=== PATIENT | female | born 1935 | race Hispanic/Latino ===

== ENCOUNTER → 2018-02-12 | Outpatient (CLI) | payer BC, MEDICARE ==
[~2018-02-12] MED LIST: ASPIRIN EC81 MG PO; FOSAMAX70 MG PO; LEVOTHYROXINE50 MCG PO; NORTRIPTYLINE H25 MG PO; PRAVASTATIN SOD10 MG PO; ULTRAM 50MG50 MG PO
--- NOTE | 2018-02-12 09:44 | Diagnostic Imaging Report ---
TECHNIQUE: Magnetic resonance imaging of the left KNEE was performed WITHOUT injected contrast. HISTORY: knee pain COMPARISON: None available. FINDINGS: LIGAMENTS AND TENDONS: ACL: Intact PCL: Intact Collateral ligaments: Intact Iliotibial band: Unremarkable Popliteal tendon: Intact Extensor mechanism: Intact JOINT: Menisci: Medial: Horizontal tear with flipped fragment into the meniscal tibial recess Lateral: Free margin fraying of the body. Articular Cartilage: Medial Compartment: High-grade cartilage loss at the medial joint line with subchondral edema. Lateral Compartment: Intermediate grade cartilage loss Patellofemoral Compartment: Intermediate grade cartilage loss Joint Fluid: The amount of fluid within the joint is within physiologic limits. BONE: As above No acute fracture. SOFT TISSUES: Otherwise, unremarkable. IMPRESSION: Medial meniscus horizontal tear of the body and posterior horn with flipped fragment to the meniscotibial recess. Medial compartment high-grade cartilage loss with subchondral edema at the medial joint line. Signed by: Dr. Lam Kelly M.D. on 02/12/2018 9:40 AM
== END ==
LOC: MRI 08:35
PROVIDERS: ATTEND Specialist
DX: S83.222A Peripheral tear of medial meniscus, current injury, left knee, initial encounter (principal)

== ENCOUNTER → 2018-02-28 | Day surgery (SDC) | payer BC, MEDICARE ==
[2018-02-26 10:17] LABS: BASOPHILS # (AUTO) 0.1 (0.0-0.1); BASOPHILS % 0.6 % (0.0-1.0); EOSINOPHILS # (AUTO) 0.2 (0.0-0.4); EOSINOPHILS % 1.9 % (0.0-6.0); HEMATOCRIT 40.4 % (34.2-44.1); HEMOGLOBIN 13.5 g/dL (12.0-16.0); LYMPHOCYTES # (AUTO) 2.6 (1.0-3.2); LYMPHOCYTES % 29.6 % (18.0-39.1); MEAN CORPUSCULAR HEMOGLOBIN 30.8 pg (28-32); MEAN CORPUSCULAR HGB CONC 33.4 g/dL (31-35); MEAN CORPUSCULAR VOLUME 92.2 fL (81-99); MONOCYTES # (AUTO) 0.6 (0.2-0.8); MONOCYTES % 6.5 % (4.4-11.3); NEUTROPHILS # (AUTO) 5.4 (2.1-6.9); PLATELET COUNT 227 x10e3/uL (140-360); RED BLOOD COUNT 4.38 x10e6/uL (3.6-5.1); RED CELL DISTRIBUTION WIDTH 12.7 % (11.7-14.4)
--- NOTE | 2018-02-26 10:37 | Diagnostic Imaging Report ---
PROCEDURE: X-RAY CHEST, TWO VIEWS COMPARISON: None. INDICATIONS: PREOPERATIVE CHEST XRAY FOR SURGERY FINDINGS: Lungs are well-inflated. No consolidation, pleural effusion, or pneumothorax. Mild chronic appearing prominence of the interstitium likely age-related fibrotic changes. Atherosclerotic calcification of the thoracic aorta. Normal heart size. No acute osseous abnormality. CONCLUSION: No acute cardiopulmonary abnormality. Dictated by: Paul Logan M.D. on 02/26/2018 at 10:45 Electronically approved by: Paul Logan M.D. on 02/26/2018 at 10:45
[~2018-02-28] MED LIST changes: +BUPIVACAINE 0.5%/EPI 30 ML SDV INJ ONE; +CEFAZOLIN SOD 2 GM/D5W 50ML 50 ML IV ONE; +DEXAMETHASONE SOD PHOS INJ 4 MG/ML VIAL ONE; +FENTANYL CITRATE/PF 100MCG/2 ML INJ ONE; +KETOROLAC TROMETHAMINE 30 MG/ML VIAL ONE; +LIDOCAINE HCL 2% LOCAL INJ 5 ML SDV VIAL INJ ONE; +ONDANSETRON HCL INJ 2 MG/ML VIAL ONE; +PROPOFOL IV EMULSION 10 MG/ML 20 ML VIAL ONE; +SEVOFLURANE INHAL SOLN 250 ML PEN BTL ONE
--- OUTSIDE RECORDS SUMMARY | 2018-02-28 05:24 | XMS REPORT ---
[facility] Address Unknown Phone Unavailable Care Team Providers Care Nurse Manager Name Role Phone NISA LEE Unavailable Unavailable Problems This patient has no known problems. Allergies, Adverse Reactions, Alerts This patient has no known allergies or adverse reactions. Medications This patient has no known medications. Results Test Description Test Time Test Comments Text Results Atomic Results Result Comments CHEST 2 VIEWS 2018-02-26 10:45:00 [place] [address] Patient Name: FRANKLYN KAT MR #: [id number] : 1935 Age/Sex: 82/F Req #: [id number] Adm Physician: Ordered by: NISA LEE MD Report #: [id number] Location: OR Room/Bed: Procedure: [id number] DX/CHEST 2 VIEWS Exam Date: 02/26/18 Exam Time: 1000 REPORT STATUS: Signed PROCEDURE: X-RAY CHEST, TWO VIEWS COMPARISON: None. INDICATIONS: PREOPERATIVE CHEST XRAY FOR SURGERY FINDINGS: Lungs are well- inflated. No consolidation, pleural effusion, or pneumothorax. Mild chronic appearing prominence of the interstitium likely age-related fibrotic changes. Atherosclerotic calcification of the thoracic aorta. Normal heart size. No acute osseous abnormality. CONCLUSION: No acute cardiopulmonary abnormality. Dictated by: Julien Martinez M.D. on 02/26/2018 at 10:45 Electronically approved by: Julien Martinez M.D. on 02/26/2018 at 10:45 Dictated By: JULIEN MARTINEZ MD Transcribed By: ALEJANDRA on 02/26/181044 COPY TO: NISA LEE MD MRI KNEE LEFT WO 2018-02-12 09:38:00 [place] [address] Patient Name: FRANKLYN KAT MR #: [id number] : 1935 Age/Sex: 82/F Req #: [id number] Adm Physician: Ordered by: NISA LEE MD Report #: [id number] Location: MRI Room/Bed: Procedure: [id number] MRI/MRI KNEE LEFT WO Exam Date: Exam Time: REPORT STATUS: Signed TECHNIQUE: Magnetic resonance imaging of the left KNEE was performed WITHOUT injected contrast. HISTORY: knee pain COMPARISON: None available. FINDINGS: LIGAMENTS AND TENDONS: ACL: Intact PCL: Intact Collateral ligaments: Intact Iliotibial band: Unremarkable Popliteal tendon: Intact Extensor mechanism: Intact JOINT: Menisci: Medial: Horizontal tear with flipped fragment into the meniscal tibial recess Lateral: Free margin fraying of the body. Articular Cartilage: Medial Compartment: High-grade cartilage loss at the medial joint line with subchondral edema. Lateral Compartment: Intermediate grade cartilage loss Patellofemoral Compartment: Intermediate grade cartilage loss Joint F luid: The amount of fluid within the joint is within physiologic limits. BONE: As above No acute fracture. SOFT TISSUES: Otherwise, unremarkable. IMPRESSION: Medial meniscus horizontal tear of the body and posterior horn with flipped fragment to the meniscotibial recess. Medial compartment high-grade cartilage loss with subchondral edema at the medial joint line. Signed by: Dr. Nora Reid M.D. on 02/12/2018 9:40 AM Dictated By: NORA REID MD 9 Transcribed By: NICK on 02/12/18939 COPY TO: NISA LEE MD
[2018-02-28 09:30] VITALS: BP 133/61
--- NOTE | 2018-03-01 17:35 | Operative Report ---
DATE OF PROCEDURE: February 28, 2018 PREOPERATIVE DIAGNOSES 1. Left knee medial meniscus tear. 2. Left knee degenerative joint disease of the knee. POSTOPERATIVE DIAGNOSES 1. Left knee medial meniscus tear. 2. Left knee degenerative joint disease of the knee. OPERATION/PROCEDURE PERFORMED: 1. Left knee examination under anesthesia. 2. Left knee arthroscopy. 3. Left knee partial medial meniscectomy. 4. Left knee chondroplasty of patella, the trochlea, medial femoral condyle, medial tibia plateau and the lateral tibial plateau. ELECTRICAL WIRING LINEMAN: Louann Navarro. ANESTHESIA: General endotracheal intubation anesthesia. IV FLUIDS: Per the anesthesia record. BRIEF DESCRIPTION OF THE PATIENT'S OPERATIVE PROCEDURE: Ms. Sesay was taken to the operating room and placed in the supine position on the operating table. Following induction of general anesthesia as well as endotracheal intubation, the patient's left lower extremity was examined under anesthesia. She was found to have a mild effusion within the knee joint, but otherwise ligamentously stable knee. The patient's lower extremity was prepped and draped in standard surgical fashion. A 2 portal technique was used to provide this patient arthroscopic evaluation of the knee joint. Examination of the suprapatellar pouch, medial and lateral gutters found no evidence of loose bodies. There was, however, evidence of chondromalacia of the patellar and trochlear surfaces. Scope was advanced in the medial compartment and examination of the medial compartment demonstrated a torn medial meniscus. There was also chondromalacia of the articulating surfaces. A combination of biting forceps and a motorized shaver were used to resect the torn portion of the meniscus. Chondroplasties of the medial femoral condyle and medial tibial plateau were performed at this time. The scope was then placed into the intercondylar notch. The anterior cruciate ligament was identified and found to be intact. Scope was advanced into the lateral compartment and there was chondromalacia of the lateral tibial plateau. Chondroplasty of this surface was performed. Scope was then placed in the suprapatellar pouch and chondroplasty of patella and trochlea was performed at this time. The knee was deflated of its sterile normal saline. The portal sites were closed using 4-0 nylon suture. The portal sites as well as the knee itself were then injected with half percent Marcaine with epinephrine. Sterile dressings were applied and the patient was awakened and taken to the post anesthesia care unit in stable condition. Job#: [id number] GH
== END | disposition home or self-care (01) ==
LOC: OR 05:17
PROVIDERS: ATTEND Specialist
DX: S83.222A Peripheral tear of medial meniscus, current injury, left knee, initial encounter (principal); M22.42 Chondromalacia patellae, left knee; M17.12 Unilateral primary osteoarthritis, left knee; E78.00 Pure hypercholesterolemia, unspecified; M81.0 Age-related osteoporosis without current pathological fracture; E07.9 Disorder of thyroid, unspecified; X58.XXXA Exposure to other specified factors, initial encounter; Z01.810 Encounter for preprocedural cardiovascular examination; Z01.812 Encounter for preprocedural laboratory examination; Z01.818 Encounter for other preprocedural examination; Z85.3 Personal history of malignant neoplasm of breast; Z90.11 Acquired absence of right breast and nipple
CPT/HCPCS: 29881; 36415; 71046; 85025; 93005; J1100; J1885; J2001; J2405; J0690

== ENCOUNTER → 2018-04-13 | Outpatient (RCR) | payer BC, MEDICARE ==
[~2018-04-13] MED LIST changes: -BUPIVACAINE 0.5%/EPI 30 ML SDV INJ ONE; -CEFAZOLIN SOD 2 GM/D5W 50ML 50 ML IV ONE; -DEXAMETHASONE SOD PHOS INJ 4 MG/ML VIAL ONE; -FENTANYL CITRATE/PF 100MCG/2 ML INJ ONE; -KETOROLAC TROMETHAMINE 30 MG/ML VIAL ONE; -LIDOCAINE HCL 2% LOCAL INJ 5 ML SDV VIAL INJ ONE; -ONDANSETRON HCL INJ 2 MG/ML VIAL ONE; -PROPOFOL IV EMULSION 10 MG/ML 20 ML VIAL ONE; -SEVOFLURANE INHAL SOLN 250 ML PEN BTL ONE
== END ==
LOC: PT 03-28 15:57
PROVIDERS: ATTEND Specialist
DX: M25.562 Pain in left knee (principal); M25.662 Stiffness of left knee, not elsewhere classified; M62.81 Muscle weakness (generalized); R26.9 Unspecified abnormalities of gait and mobility
CPT/HCPCS: 97110 ×7; 97140 ×2; 97162; G8978; G8979

== ENCOUNTER 2018-04-18 12:54 | Outpatient (RCR) | payer BC, MEDICARE | END 2018-05-14 | LOC: PT 12:54 | PROVIDERS: ATTEND Specialist | DX: M25.562 Pain in left knee (principal); M25.662 Stiffness of left knee, not elsewhere classified; M25.862 Other specified joint disorders, left knee; M62.81 Muscle weakness (generalized); R26.9 Unspecified abnormalities of gait and mobility | CPT/HCPCS: 97110 ×2; G8979; G8980 ==

== ENCOUNTER → 2020-02-24 | Outpatient (CLI) | payer BC, MEDICARE ==
--- NOTE | 2020-02-24 09:42 | Diagnostic Imaging Report ---
Right hip, 2 views. History: Right hip pain. Findings: The soft tissues are normal. Bone mineralization is normal. There is no evidence of fracture or dislocation. There are no lytic or sclerotic lesions. There is mild joint space narrowing and subchondral sclerosis. IMPRESSION: Mild right hip DJD. Signed by: Jian Eastman on 02/24/2020 9:39 AM
--- NOTE | 2020-02-24 09:45 | Diagnostic Imaging Report ---
Lumbar spine series, 5 views. History: Low back pain. Comparison: None available. Discussion: The paraspinal soft tissues are unremarkable. The alignment of the lumbar spine is normal. There is no evidence of fracture, spondylolisthesis, or spondylolysis. There is severe disc space narrowing with end plate and posterior facet sclerosis at L1-L2 and L5-S1. Mild to moderate disc space narrowing is present at other levels with diffuse osteophytosis. 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 Signed by: Jian Eastman on 02/24/2020 9:42 AM
== END ==
LOC: RAD 08:49
PROVIDERS: ATTEND Internal Medicine
DX: S73.101A Unspecified sprain of right hip, initial encounter (principal); S33.9XXA Sprain of unspecified parts of lumbar spine and pelvis, initial encounter
CPT/HCPCS: 72110

== ENCOUNTER → 2021-05-20 | Outpatient (CLI) | payer MEDICARE ==
[~2021-05-20] MED LIST changes: +DIATRIZOATE MEGL/DIATRIZOA SOD 30 ML BTL PO ONE; +IOPAMIDOL 370 MG/ML 200 ML INFUS..BTL INJ ONE; +SODIUM CHLORIDE 0.9% 50ML 50 ML ONE
== END ==
LOC: CT 11:31
PROVIDERS: ATTEND Internal Medicine
DX: K57.90 Diverticulosis of intestine, part unspecified, without perforation or abscess without bleeding (principal)
CPT/HCPCS: 36415; 74177; 82565; 84520; Q9967

== ENCOUNTER → 2022-07-04 | Outpatient (CLI) | payer MEDICARE ==
[~2022-07-04] MED LIST changes: -DIATRIZOATE MEGL/DIATRIZOA SOD 30 ML BTL PO ONE; -IOPAMIDOL 370 MG/ML 200 ML INFUS..BTL INJ ONE; -SODIUM CHLORIDE 0.9% 50ML 50 ML ONE
== END ==
LOC: RAD 09:49
PROVIDERS: ATTEND Internal Medicine
DX: M47.817 Spondylosis without myelopathy or radiculopathy, lumbosacral region (principal)
CPT/HCPCS: 72110

== ENCOUNTER 2022-07-24 22:51 | Emergency (ER) | payer MEDICARE ==
[~2022-07-24] VITALS: Ht 170.2 cm; Wt 74.8 kg
[2022-07-24 23:28] LABS: BASOPHILS # (AUTO) 0.1 (0.0-0.1); BASOPHILS % 0.6 % (0.0-1.0); EOSINOPHILS # (AUTO) 0.2 (0.0-0.4); EOSINOPHILS % 1.5 % (0.0-6.0); HEMATOCRIT 41.2 % (34.2-44.1); HEMOGLOBIN 13.5 g/dL (12.0-16.0); LYMPHOCYTES # (AUTO) 2.1 (1.0-3.2); LYMPHOCYTES % 21.1 % (18.0-39.1); MEAN CORPUSCULAR HEMOGLOBIN 30.9 pg (28-32); MEAN CORPUSCULAR HGB CONC 32.8 g/dL (31-35); MEAN CORPUSCULAR VOLUME 94.3 fL (81-99); MONOCYTES # (AUTO) 0.4 (0.2-0.8); MONOCYTES % 4.5 % (4.4-11.3); NEUTROPHILS % 71.8 % (38.7-80.0); PLATELET COUNT 197 x10e3/uL (140-360); RED BLOOD COUNT 4.37 x10e6/uL (3.6-5.1); RED CELL DISTRIBUTION WIDTH 13.5 % (11.7-14.4)
[2022-07-24 23:44] LABS: ALBUMIN 3.4 g/dL (3.5-5.0); ALBUMIN/GLOBULIN RATIO 0.8 (0.8-2.0); ANION GAP 15.9 mmol/L (8-16); CALCIUM 8.7 mg/dL (8.4-10.2); CREATININE, SERUM 1.12 mg/dL (0.57-1.11); POTASSIUM 3.9 mmol/L (3.5-5.1)
[2022-07-24] MEDS: ONDANSETRON HCL INJ 2MG/ML 2ML 2 MG/ML VIAL IV STA (23:54)
[2022-07-24] MEDS: Morphine 4mg INJECTION 4 MG/ML INJ IV ONE (23:54)
[2022-07-25] MEDS ORDERED: IOPAMIDOL 370 MG/ML 100 ML INFUS..BTL INJ ONE (00:08)
[2022-07-25 00:20] LABS: CLARITY,URINE CLOUDY (CLEAR); COLOR,URINE YELLOW (YELLOW); KETONES,URINE NEGATIVE (NEGATIVE); LEUKOCYTE ESTERASE ,URINE 1+ (NEGATIVE); NITRITE,URINE NEGATIVE (NEGATIVE); PROTEIN,URINE DIPSTICK NEGATIVE (NEGATIVE); URINE UROBILINOGEN 1 mg/dL (0.2 - 1)
[2022-07-25] MEDS: SODIUM CHLORIDE 0.9% 500ML 500 ML IV ONE (00:20)
[2022-07-25 00:24] LABS: BACTERIA,URINE MANY /HPF; EPITHELIAL CELLS,URINE MANY /LPF; RBC,URINE 0-5 /HPF (0-5); TRANSITIONAL EPI CELLS,URINE FEW
[2022-07-25] MEDS ORDERED: CEFDINIR300 MG PO (00:47)
[2022-07-25] MEDS ORDERED: PYRIDIUM200 MG PO (00:47)
[2022-07-25 00:59] VITALS: BP 147/65
== END 2022-07-25 01:00 | disposition home or self-care (01) ==
LOC: ER 22:58
DX: N39.0 Urinary tract infection, site not specified (principal); E03.9 Hypothyroidism, unspecified; E78.5 Hyperlipidemia, unspecified; F32.A Depression, unspecified; Z79.899 Other long term (current) drug therapy; Z85.3 Personal history of malignant neoplasm of breast; Z90.11 Acquired absence of right breast and nipple
CPT/HCPCS: 36415; 74177; 80053; 81001; 83690; 84484; 85025; 87086; 93005; 99284; J2270; J2405; J7040; Q9967

== ENCOUNTER 2024-03-09 15:33 | Emergency (ER) | payer MEDICARE ==
[~2024-03-09] VITALS: Ht 170.2 cm; Wt 74.8 kg
[~2024-03-09 15:33] MED LIST changes: +CEFDINIR300 MG PO; +CEFUROXIME250 MG PO; +ONDANSETRON ODT4 MG PO; +PYRIDIUM100 MG PO; +PYRIDIUM200 MG PO
[2024-03-09 16:47] VITALS: PULSE 76; RESP 17; TEMP 98.2; O2SAT 98
== END 2024-03-09 17:08 | disposition home or self-care (01) ==
LOC: ER 16:15
DX: R10.31 Right lower quadrant pain (principal); M19.09 Primary osteoarthritis, other specified site; E78.5 Hyperlipidemia, unspecified; E03.9 Hypothyroidism, unspecified; F32.A Depression, unspecified; Z85.3 Personal history of malignant neoplasm of breast
CPT/HCPCS: 99282